=== PATIENT | female | born 1980 | race American Indian/Alaskan Native ===

== ENCOUNTER 2020-04-14 07:19 | Emergency (ER) | payer BC ==
[2020-04-14 07:26] VITALS: BP 150/85
[2020-04-14] MEDS ORDERED: predniSONE 20 MG TAB PO ONE (08:00)
[2020-04-14] MEDS ORDERED: ASPIRIN 325 MG TAB PO ONE (08:00)
--- NOTE | 2020-04-14 08:22 | Emergency Department Report ---
ED General Adult HPI - General Chief complaint: Chest Pain Stated complaint: CHEST PAIN Time Seen by Provider: 04/14/20 07:42 Source: patient Mode of arrival: Ambulatory Limitations: No Limitations - History of Present Illness Initial comments: Patient is a 39-year-old female who presents emergency room with complaints of right-sided and substernal chest pain that began at 5 PM yesterday. She states that she also has pain in the right side of her neck. Patient states that she has pain when she takes a deep breath but denies any shortness of breath. She states that she cannot sleep on that side because it is uncomfortable. She states that she used some Motrin and a heating pad with some relief. She denies any nausea, vomiting, diarrhea, fever, cough, leg swelling. She denies any recent surgery, sick contacts. She states that she did travel here a few days ago from [place] and it was a 4-hour drive. She states over the last few days she has had a sore throat and some discomfort in the ears. She denies any past medical history. She has an allergy to penicillin. She states her last menstrual cycle was 04/10/2020. She denies any family cardiac history. She states that she is a non-smoker. She states that she drinks a couple times a month. She states that she does work out. Patient states that she is concerned for COVID-19 and she states that she went to get a nasal PCR swab performed yesterday as an outpatient. - Related Data Previous Rx's Medication Instructions Recorded Last Taken Type Acetaminophen [Tylenol] 650 mg PO Q8HR PRN #20 capsule 04/14/20 Unknown Rx Azithromycin [Zithromax TAB] 250 mg PO QDAY 5 Days #6 tablet 04/14/20 Unknown Rx traMADoL [Ultram 50 MG tab] 50 mg PO Q6HR PRN #12 tablet 04/14/20 Unknown Rx Allergies Allergy/AdvReac Type Severity Reaction Status Date / Time Penicillins Allergy Hives Verified 04/14/20 07:20 ED Review of Systems ROS: Stated complaint: CHEST PAIN Other details as noted in HPI Comment: All other systems reviewed and negative ED Past Medical Hx - Past Medical History Previous Medical History?: No - Surgical History Past Surgical History?: Yes Additional Surgical History: x2 - Social History Smoking Status: Never Smoker Substance Use Type: None - Medications Home Medications: Home Medications Medication Instructions Recorded Confirmed Last Taken Type Acetaminophen [Tylenol] 650 mg PO Q8HR PRN #20 capsule 04/14/20 Unknown Rx Azithromycin [Zithromax TAB] 250 mg PO QDAY 5 Days #6 tablet 04/14/20 Unknown Rx traMADoL [Ultram 50 MG tab] 50 mg PO Q6HR PRN #12 tablet 04/14/20 Unknown Rx ED Physical Exam - General Limitations: No Limitations General appearance: alert, in no apparent distress - Head Head exam: Present: atraumatic, normocephalic - Eye Eye exam: Present: normal appearance - ENT ENT exam: Present: mucous membranes moist - Neck Neck exam: Present: normal inspection, full ROM. Absent: tenderness, meningismus - Respiratory Respiratory exam: Present: normal lung sounds bilaterally. Absent: respiratory distress, wheezes, rales, rhonchi, stridor, chest wall tenderness, accessory muscle use, decreased breath sounds, prolonged expiratory - Cardiovascular Cardiovascular Exam: Present: regular rate, normal rhythm, normal heart sounds. Absent: systolic murmur, diastolic murmur, rubs, gallop - Neurological Exam Neurological exam: Present: alert, oriented X3 - Psychiatric Psychiatric exam: Present: normal affect, normal mood - Skin Skin exam: Present: warm, dry, intact ED Course Vital Signs 04/14/20 04/14/20 07: 12:10 Temperature 98.7 F Pulse Rate 110 H 108 H Respiratory 18 20 Rate Blood Pressure 150/85 O2 Sat by Pulse 99 98 Oximetry ED Medical Decision Making - Lab Data Result diagrams: 04/14/20 08:13 04/14/20 08:13 Lab Results 04/14/20 04/14/20 04/14/20 Range/Units 08:13 08:13 08:13 WBC 7.7 (4.5-11.0) K/mm3 RBC 4.03 (3.65-5.03) M/mm3 Hgb 12.0 (10.1-14.3) gm/dl Hct 35.9 (30.3-42.9) % MCV 89 (79-97) fl MCH 30 (28-32) pg MCHC 34 (30-34) % RDW 14.5 (13.2-15.2) % Plt Count 261 (140-440) K/mm3 Lymph % (Auto) 18.6 (13.4-35.0) % Kemper % (Auto) 10.7 H (0.0-7.3) % Eos % (Auto) 1.1 (0.0-4.3) % Baso % (Auto) 0.5 (0.0-1.8) % Lymph # 1.4 (1.2-5.4) K/mm3 Kemper # 0.8 (0.0-0.8) K/mm3 Eos # 0.1 (0.0-0.4) K/mm3 Baso # 0.0 (0.0-0.1) K/mm3 Seg Neutrophils % 69.1 (40.0-70.0) % Seg Neutrophils # 5.3 (1.8-7.7) K/mm3 D-Dimer (0-234) ng/mlDDU Sodium (137-145) mmol/L Potassium (3.6-5.0) mmol/L Chloride (98-107) mmol/L Carbon Dioxide (22-30) mmol/L Anion Gap mmol/L BUN (7-17) mg/dL Creatinine (0.6-1.2) mg/dL Estimated GFR ml/min BUN/Creatinine Ratio % Glucose (65-100) mg/dL Calcium (8.4-10.2) mg/dL Total Bilirubin (0.1-1.2) mg/dL AST (5-40) units/L ALT (7-56) units/L Alkaline Phosphatase (35-129) units/L Troponin T < 0.010 (0.00-0.029) ng/mL NT-Pro-B Natriuret Pep (0-450) pg/mL Total Protein (6.3-8.2) g/dL Albumin (3.9-5) g/dL Albumin/Globulin Ratio % TSH (0.270-4.200) mlU/mL HCG, Qual Negative (Negative) 04/14/20 04/14/20 04/14/20 Range/Units 08:13 08:13 08:13 WBC (4.5-11.0) K/mm3 RBC (3.65-5.03) M/mm3 Hgb (10.1-14.3) gm/dl Hct (30.3-42.9) % MCV (79-97) fl MCH (28-32) pg MCHC (30-34) % RDW (13.2-15.2) % Plt Count (140-440) K/mm3 Lymph % (Auto) (13.4-35.0) % Kemper % (Auto) (0.0-7.3) % Eos % (Auto) (0.0-4.3) % Baso % (Auto) (0.0-1.8) % Lymph # (1.2-5.4) K/mm3 Kemper # (0.0-0.8) K/mm3 Eos # (0.0-0.4) K/mm3 Baso # (0.0-0.1) K/mm3 Seg Neutrophils % (40.0-70.0) % Seg Neutrophils # (1.8-7.7) K/mm3 D-Dimer (0-234) ng/mlDDU Sodium 141 (137-145) mmol/L Potassium 3.3 L (3.6-5.0) mmol/L Chloride 102.8 (98-107) mmol/L Carbon Dioxide 22 (22-30) mmol/L Anion Gap 20 mmol/L BUN 5 L (7-17) mg/dL Creatinine 0.6 (0.6-1.2) mg/dL Estimated GFR > 60 ml/min BUN/Creatinine Ratio 8 % Glucose 92 (65-100) mg/dL Calcium 9.2 (8.4-10.2) mg/dL Total Bilirubin < 0.20 (0.1-1.2) mg/dL AST 15 (5-40) units/L ALT 14 (7-56) units/L Alkaline Phosphatase 122 (35-129) units/L Troponin T (0.00-0.029) ng/mL NT-Pro-B Natriuret Pep 54.22 (0-450) pg/mL Total Protein 7.4 (6.3-8.2) g/dL Albumin 3.6 L (3.9-5) g/dL Albumin/Globulin Ratio 0.9 % TSH 1.320 (0.270-4.200) mlU/mL HCG, Qual (Negative) 04/14/20 04/14/20 Range/Units 09:55 09:55 WBC (4.5-11.0) K/mm3 RBC (3.65-5.03) M/mm3 Hgb (10.1-14.3) gm/dl Hct (30.3-42.9) % MCV (79-97) fl MCH (28-32) pg MCHC (30-34) % RDW (13.2-15.2) % Plt Count (140-440) K/mm3 Lymph % (Auto) (13.4-35.0) % Kemper % (Auto) (0.0-7.3) % Eos % (Auto) (0.0-4.3) % Baso % (Auto) (0.0-1.8) % Lymph # (1.2-5.4) K/mm3 Kemper # (0.0-0.8) K/mm3 Eos # (0.0-0.4) K/mm3 Baso # (0.0-0.1) K/mm3 Seg Neutrophils % (40.0-70.0) % Seg Neutrophils # (1.8-7.7) K/mm3 D-Dimer 930.56 H (0-234) ng/mlDDU Sodium (137-145) mmol/L Potassium (3.6-5.0) mmol/L Chloride (98-107) mmol/L Carbon Dioxide (22-30) mmol/L Anion Gap mmol/L BUN (7-17) mg/dL Creatinine (0.6-1.2) mg/dL Estimated GFR ml/min BUN/Creatinine Ratio % Glucose (65-100) mg/dL Calcium (8.4-10.2) mg/dL Total Bilirubin (0.1-1.2) mg/dL AST (5-40) units/L ALT (7-56) units/L Alkaline Phosphatase (35-129) units/L Troponin T < 0.010 (0.00-0.029) ng/mL NT-Pro-B Natriuret Pep (0-450) pg/mL Total Protein (6.3-8.2) g/dL Albumin (3.9-5) g/dL Albumin/Globulin Ratio % TSH (0.270-4.200) mlU/mL HCG, Qual (Negative) Vital Signs 04/14/20 04/14/20 07:20 12:10 Temperature 98.7 F Pulse Rate 110 H 108 H Respiratory 18 20 Rate Blood Pressure 150/85 O2 Sat by Pulse 99 98 Oximetry - EKG Data EKG shows normal: sinus rhythm, axis, intervals, QRS complexes, ST-T waves Rate: tachycardia (at 103) - EKG Data 04/14/20 08:28 LAE inverted P waves V1, V2 no STEMI - Radiology Data Radiology results: report reviewed CHEST 2 VIEWS INDICATION / CLINICAL INFORMATION: Chest pain. COMPARISON: None available. FINDINGS: SUPPORT DEVICES: None. HEART / MEDIASTINUM: Heart is upper normal size. LUNGS / PLEURA: Bibasilar pulmonary opacities with small bilateral pleural effusions. No pneumothorax. ADDITIONAL FINDINGS: Cholecystectomy clips in the right upper quadrant. IMPRESSION: 1. Borderline cardiomegaly with mild bibasilar pleural-parenchymal densities. Signer Name: Ashley Trejo MD Signed: 04/14/2020 9:16 AM Workstation Name: [id number] Transcribed By: DT Dictated By: Nacho Trejo MD Electronically Authenticated By: Nacho Trejo MD Signed Date/Time: 04/14/20915 DD/ 4 TD/TT: CTA CHEST WITH CONTRAST INDICATION / CLINICAL INFORMATION: Pleuritic chest pain. Elevated d-dimer. TECHNIQUE: Axial CT images were obtained through the chest after injection of 100 mL Omnipa que 300 IV contrast. 3 plane MIP and/or 3D reconstructions were produced. All CT scans at this location are performed using CT dose reduction for ALARA by means of automated exposure control. COMPARISON: No prior CT for comparison. Chest radiograph earlier in the day. FINDINGS: PULMONARY ARTERIES: No pulmonary emboli. THORACIC AORTA: No significant abnormality. HEART: Heart is mildly enlarged. No acute abnormality. CORONARY ARTERY CALCIFICATION: None. MEDIASTINUM / JOSÉ MIGUEL: No significant abnormality. PLEURA: No pleural effusion. No pneumothorax. LUNGS: Streaky airspace disease in both lung bases. Several peripheral inflammatory nodular densities in both upper lobes. ADDITIONAL FINDINGS: Bilateral breast implants. UPPER ABDOMEN: No acute findings. SKELETAL STRUCTURES: No significant osseous abnormality. IMPRESSION: 1. No CT evidence for pulmonary embolism. 2. Streaky bibasilar airspace disease with bilateral upper lobe peripheral pulmonary nodular densities likely representing pneumonia. Signer Name: Ashley Trejo MD Signed: 04/14/2020 11:38 AM Workstation Name: [id number] Transcribed By: DT Dictated By: Nacho Trejo MD Electronically Authenticated By: Nacho Trejo MD Signed Date/Time: 04/14/20 1138 DD/ 1135 TD/TT: - Medical Decision Making Patient is a 39-year-old female who presents emergency room with complaints of right-sided and substernal chest pain that began at 5 PM yesterday. She states that she also has pain in the right side of her neck. Patient states that she has pain when she takes a deep breath but denies any shortness of breath. She states that she cannot sleep on that side because it is uncomfortable. She states that she used some Motrin and a heating pad with some relief. She denies any nausea, vomiting, diarrhea, fever, cough, leg swelling. She denies any recent surgery, sick contacts. She states that she did travel here a few days ago from [place] and it was a 4-hour drive. She states over the last few days she has had a sore throat and some discomfort in the ears. She denies any past medical history. She has an allergy to penicillin. She states her last menstrual cycle was 04/10/2020. She denies any family cardiac history. She states that she is a non-smoker. She states that she drinks a couple times a month. She states that she does work out. Patient states that she is concerned for COVID-19 and she states that she went to get a nasal PCR swab performed yesterday as an outpatient. Vitals mild tachycardia, otherwise stable. Breath sounds are clear bilaterally, no wheezing, no rales, no rhonchi, normal orophary nx. EKG with sinus tachycardia at 103 bpm, LAE, inverted P waves V1, V2, no STEMI. labs with elevated d-dimer and mild hypokalemia. troponin is negative x2. CXR: 1. Borderline cardiomegaly with mild bibasilar pleural-parenchymal densities. CT angio chest: 1. No CT evidence for pulmonary embolism. 2. Streaky bibasilar airspace disease with bilateral upper lobe peripheral pulmonary nodular densities likely representing pneumonia. Patient is presenting with the symptoms during COVID-19 pandemic, this is most likely COVID-19 pneumonia. Discussed all findings with patient and answered questions, discussed COVID-19 with patient, discussed strict return precautions, discussed outpatient testing, discussed self quarantine. Patient performed ambulating oxygen saturation with nurse and maintained sats of 99% on room air. Patient does not meet hospital criteria for admission or for hospital testing. Patient given prescription for azithromycin, Tylenol, tramadol. Advised patient please take medication as prescribed. do not drive or operate heavy machinery while taking pain medication. Please increase your fluid intake over the next several days. May take Tylenol as needed for fever or body aches. May take jpfe-rbb-qliixne cold symptom relief medication such as Mucinex or TheraFlu. Follow-up with a primary care doctor for reexamination. follow up with a chief digital media officer. Return to emerg ency room immediately for any new or worsening symptoms including but not limited to difficulty breathing, shortness of breath, severe chest pain, unable to tolerate by mouth intake, etc. Please self quarantine for 2 weeks from the onset of your symptoms. Please do not go out in public. If you are around others at home please wear a mask. If you need to cough or sneeze please do so in a napkin and immediately throw it away and immediately wash your hands. Wash your hands frequently. Wipe everything down. Recommend for you to get COVID-19 testing, may have this done at primary care doctor, health department, [facility] drive thru testing centers. - Differential Diagnosis ACS, PE, pericarditis, pleural effusion, CHF, COVID 19, PNA, costochrondrit Critical care attestation.: If time is entered above; I have spent that time in minutes in the direct care of this critically ill patient, excluding procedure time. ED Disposition Clinical Impression: Suspected COVID-19 virus infection Chest pain Qualifiers: Chest pain type: chest pain on breathing Qualified Code(s): R07.1 - Chest pain on breathing Bilateral pneumonia Qualifiers: Pneumonia type: due to unspecified organism Lung location: unspecified part of lung Qualified Code(s): J18.9 - Pneumonia, unspecified organism Disposition: DC-01 TO HOME OR SELFCARE Is pt being admited?: No Does the pt Need Aspirin: No Condition: Stable Instructions: COVID-19, Chest Pain (ED) Additional Instructions: please take medication as prescribed. do not drive or operate heavy machinery while taking pain medication. Please increase your fluid intake over the next several days. May take Tylenol as needed for fever or body aches. May take wqjr-pbh-uttarrs cold symptom relief medication such as Mucinex or TheraFlu. Follow-up with a primary care doctor for reexamination. follow up with a chief digital media officer. Return to emergency room immediately for any new or worsening symptoms including but not limited to difficulty breathing, shortness of breath, severe chest pain, unable to tolerate by mouth intake, etc. Please self devin rantine for 2 weeks from the onset of your symptoms. Please do not go out in public. If you are around others at home please wear a mask. If you need to cough or sneeze please do so in a napkin and immediately throw it away and immediately wash your hands. Wash your hands frequently. Wipe everything down. Recommend for you to get COVID-19 testing, may have this done at primary care doctor, health department, [facility] drive thr testing centers. Prescriptions: Acetaminophen [Tylenol] 650 mg PO Q8HR PRN #20 capsule PRN Reason: Pain, Moderate (4-6) traMADoL [Ultram 50 MG tab] 50 mg PO Q6HR PRN #12 tablet PRN Reason: Pain , Severe (7-10) Azithromycin [Zithromax TAB] 250 mg PO QDAY 5 Days #6 tablet Referrals: MEGAN DEJESUS MD [Staff Physician] - 2-3 Days [facility] [Provider Group] - 2-3 Days [facility] [Outside] - 2-3 Days JAMISON HARDEN [Staff Physician] - 2-3 Days Time of Disposition: 11:48 Print Language: EAST TIMOR[place]
[2020-04-14 09:06] LABS: Basophils % (Auto) 0.5 % (0.0-1.8); Eosinophils # (Auto) 0.1 K/mm3 (0.0-0.4); Eosinophils % (Auto) 1.1 % (0.0-4.3); Hematocrit 35.9 % (30.3-42.9); Lymphocytes # (Auto) 1.4 K/mm3 (1.2-5.4); Lymphocytes % (Auto) 18.6 % (13.4-35.0); Mean Corpuscular HGB Conc 34 % (30-34); Mean Corpuscular Volume 89 fl (79-97); Monocytes # (Auto) 0.8 K/mm3 (0.0-0.8); Monocytes % (Auto) 10.7 % (0.0-7.3); Platelet Count 261 K/mm3 (140-440); Red Blood Count 4.03 M/mm3 (3.65-5.03); Red Cell Distribution Width 14.5 % (13.2-15.2)
--- NOTE | 2020-04-14 09:21 | XRay Report ---
CHEST 2 VIEWS INDICATION / CLINICAL INFORMATION: Chest pain. COMPARISON: None available. FINDINGS: SUPPORT DEVICES: None. HEART / MEDIASTINUM: Heart is upper normal size. LUNGS / PLEURA: Bibasilar pulmonary opacities with small bilateral pleural effusions. No pneumothorax . ADDITIONAL FINDINGS: Cholecystectomy clips in the right upper quadrant. IMPRESSION: 1. Borderline cardiomegaly with mild bibasilar pleural-parenchymal densities. Signer Name: Ashley Trejo MD Signed: 04/14/2020 9:16 AM Workstation Name: [id number]
[2020-04-14 09:28] LABS: Alanine Aminotransferase 14 units/L (7-56); Albumin 3.6 g/dL (3.9-5); Blood Urea Nitrogen 5 mg/dL (7-17); Calcium 9.2 mg/dL (8.4-10.2); Hemolysis Index 11
[2020-04-14 09:30] LABS: BUN/Creatinine Ratio 8
[2020-04-14] MEDS ORDERED: POTASSIUM CHLORIDE ER 20 MEQ TAB PO ONE (09:31)
--- NOTE | 2020-04-14 11:42 | Cat Scan Report ---
CTA CHEST WITH CONTRAST INDICATION / CLINICAL INFORMATION: Pleuritic chest pain. Elevated d-dimer. TECHNIQUE: Axial CT images were obtained through the chest after injection of 100 mL Omnipaque 300 IV contrast. 3 plane MIP and/or 3D reconstructions were produced. All CT scans at this location are performed usin g CT dose reduction for ALARA by means of automated exposure control. COMPARISON: No prior CT for comparison. Chest radiograph earlier in the day. FINDINGS: PULMONARY ARTERIES: No pulmonary emboli. THORACIC AORTA: No significant abnormality. HEART: Heart is mildly enlarged. No acute abnormality. CORONARY ARTERY CALCIFICATION: None. MEDIASTINUM / JOSÉ MIGUEL: No significant abnormality. PLEURA: No pleural effusion. No pneumothorax. LUNGS: Streaky airspace disease in both lung bases. Several peripheral inflammatory nodular densities in both upper lobes. ADDITIONAL FINDINGS: Bilateral breast implants. UPPER ABDOMEN: No acute findings. SKELETAL STRUCTURES: No significant osseous abnormality. IMPRESSION: 1. No CT evidence for pulmonary embolism. 2. Streaky bibasilar airspace disease with bilateral upper lobe peripheral pulmonary nodular densitie s likely representing pneumonia. Signer Name: Ashley Trejo MD Signed: 04/14/2020 11:38 AM Workstation Name: [id number]
== END 2020-04-14 12:16 | disposition home or self-care (01) ==
LOC: ED 07:19
DX: Z20.828 Contact with and (suspected) exposure to other viral communicable diseases (principal); J18.9 Pneumonia, unspecified organism; R07.89 Other chest pain; Z88.0 Allergy status to penicillin; Z98.890 Other specified postprocedural states; Z79.899 Other long term (current) drug therapy
CPT/HCPCS: 36415; 71046; 71275; 80053; 83880; 84443; 84484; 84703; 85025; 85379; 93005; 99285; J7512; Q9967